=== PATIENT | female | born 1965 | race Caucasian/White ===

== ENCOUNTER → 2016-07-09 | Outpatient (CLI) | payer BC, OTHER | LOC: RAD 09:48 | DX: S90.30XA Contusion of unspecified foot, initial encounter (principal); S80.10XA Contusion of unspecified lower leg, initial encounter; M79.605 Pain in left leg; M79.672 Pain in left foot ==

== ENCOUNTER → 2020-07-19 | Outpatient (CLI) | payer BC | LOC: LAB 10:07 | PROVIDERS: ATTEND Nurse Practitioner | DX: R09.81 Nasal congestion (principal); M79.10 Myalgia, unspecified site; R06.02 Shortness of breath; R05 Cough; Z20.822 Contact with and (suspected) exposure to COVID-19 ==